=== PATIENT | female | born 1945 | race Caucasian/White ===

== ENCOUNTER 2021-12-07 11:04 | Emergency (ER) | payer MEDICAID, SELFPAY ==
--- NOTE | ~2021-12-07 | MR_ITS ---
MRI OF THE BRAIN WITHOUT IV CONTRAST INDICATION: Dizziness. Ataxia. COMPARISON: Head CT 12/07/2021. TECHNIQUE: Multiplanar multisequence MR imaging of the brain was obtained without IV contrast. FINDINGS: There is no hydrocephalus, extra-axial surface collection, or herniation. 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 The major flow voids at the skull base are preserved. There is no acute infarct on diffusion-weighted imaging. There is no intracranial hemorrhage on the gradient recalled echo acquisition. The midline structures are normal. The cerebellar tonsils are normally positioned. The cerebellum and brainstem are normal. The craniocervical junction is normal. Osseous marrow signal intensity is homogenous. The visualized soft tissues are unremarkable. MR/MR head/brain wo con IMPRESSION: - No acute intracranial findings. 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
--- NOTE | ~2021-12-07 | CT_ITS ---
EXAMINATION: CT HEAD WITHOUT CONTRAST CLINICAL INFORMATION: Severe headache and dizziness. On Coumadin. COMPARISON: None. TECHNIQUE: Contiguous axial imaging was performed from the skull base to vertex without intravenous contrast. This CT examination was performed using dose optimization techniques as appropriate, variously including the following: * Automated exposure control * Adjustment of mA and/or kV according to patient size (this includes techniques or standardized protocols for targeted exams where dose is matched to indication/reason for exam; i.e. extremities or head) Use of iterative reconstruction technique DLP: 644 mGy-cm. FINDINGS: There is no evidence of acute intracranial hemorrhage or territorial infarction. No abnormal mass effect or midline shift is seen. [place] to white matter differentiation is well preserved. No extra-axial fluid collections are identified. No hydrocephalus. Proportional prominence of the ventricles and sulcal spaces is consistent with mild volume loss. Patchy periventricular and deep white matter hypoattenuation is consistent with mild small vessel ischemic changes. The osseous structures and soft tissues are normal. Partial opacification of the right maxillary sinus. The mastoid air cells and visualized portions of the paranasal sinuses are otherwise well aerated. CT/CT head for stroke IMPRESSION: No acute intracranial pathology. This critical result was discussed with Meka Phoenix MD by telephone at 12/07/2021 11:39 AM and it was ascertained that the content and urgency of the report was understood at the time of direct communication.
--- NOTE | ~2021-12-07 | XR_ITS ---
EXAMINATION: XR CHEST CLINICAL INFORMATION: Dizziness COMPARISON: 05/29/2019 TECHNIQUE: Frontal view of the chest was obtained. FINDINGS: The lungs are well expanded. There is no focal consolidation, edema, or effusion. No pneumothorax. The cardiomediastinal silhouette is within normal limits of size with a calcified aorta. No acute osseous abnormality. XR/XR chest 1V IMPRESSION: Clear lungs.
[2021-12-07 11:22] VITALS: BP 166/81; PULSE 77; RESP 18; O2SAT 98; BMI 25.8
--- NOTE | 2021-12-07 11:25 | ECG_ITS ---
Test Reason : DIZZINESS Blood Pressure : / mmHG Vent. Rate : 065 BPM Atrial Rate : 065 BPM P-R Int : 148 ms QRS Dur : 078 ms QT Int : 390 ms P-R-T Axes : 022 057 066 degrees QTc Int : 405 ms Normal sinus rhythm Normal ECG When compared with ECG of 29-MAY-2019 11:46, No significant change was found Referred By: Meka Phoenix Electronically Signed By:JW MASCORRO MD
--- NOTE | 2021-12-07 11:27 | ED_ITS ---
HPI - Neuro Symptoms/Deficit General Chief Complaint: General Medical Stated Complaint: unsteady Time Seen by Provider: 12/07/21 11:19 Source: patient, family and old records reviewed Mode of arrival: ambulatory Limitations: no limitations History of Present Illness HPI Narrative: 76 yo female with hx of DVT on coumadin, legally blind wears very thick corrective lens, arthritis, reports two days ago she noted she felt like she was on a boat and when she walks she leans to the left. She is compliant with medications. No GIB symptoms. Yesterday had severe headache which is very unusual for her. Also noted yesterday that she had trouble with her vision where it seemed dark but this resolved. Today with walking she notes she feels very off balance and is leaning to the left. Family brought patient to the ED for further management. Onset (ago): day(s) (2) Timing confirmed by: family member Location: ataxia History of same: No Severity: moderate Quality: constant Relieving factors: rest Exacerbating factors: other (trying to ambulate) Context: sudden onset On Anticoagulants: Yes Associated symptoms: headaches, nausea/vomiting and other Treatments Prior to Arrival: other (compliant with medications) Related Data Home Medications Medication Instructions Recorded Confirmed cholecalciferol (vitamin D3) 25 25 mcg PO DAILY 12/07/21 12/07/21 mcg (1,000 unit) tablet (Vitamin D3) warfarin 2.5 mg tablet 7.5 mg PO DAILY 12/07/21 12/07/21 Previous Rx's Medication Instructions Recorded meclizine 25 mg tablet 25 mg PO TID PRN #30 tab 12/07/21 Allergies Allergy/AdvReac Type Severity Reaction Status Date / Time No Known Allergies Allergy Unverified 04/21/20 19:45 [No Known Allergies*] Review of Systems Review of Systems: Constitutional : No Fever, No Chills, No Fatigue ENT/Mouth : No sore throat, No Rhinorrhea Eyes: No Eye Pain, No Swelling, No Redness Cardiovascular : No Chest Pain, No SOB, No Dyspnea on Exertion Respiratory : No Cough, No Sputum Gastrointestinal : pos Nausea, No Vomiting, No Diarrhea, No abdominal Pain, no melena, no hematochezia Genitourinary : No Dysuria, No Urinary Frequency, No Hematuria, Musculoskeletal : No joint pain, No Myalgias, No Joint Swelling Skin : No Skin Lesions, No rash Neuro : No Weakness, No Numbness, pos Dizziness, positive Headache, pos diff walking Psych : No Anxiety/Panic, No Depression Heme/Lymph: No Bruising, No Bleeding,No Lymphadenopathy Endocrine : No Polyuria, No Polydipsia All other systems reviewed and are negative [facility] Past Medical History Attestation statement: The following information was validated with the patient. Medical History Arthritis DVT (deep venous thrombosis) Legally blind Surgical History Status post appendectomy Social History Social History (Updated 12/07/21 @ 11:34 by Meka Phoenix DO) Patient Tobacco Use Status: Never used Tobacco Advance Directives: No Advance Directives Information Provided: No Physical Exam Vital Signs: Vital Signs: Last Vital Signs Temp 98.8 F 12/07/21 15:07 Pulse 71 12/07/21 15:07 Resp 16 12/07/21 15:07 BP 123/68 12/07/21 15:07 Pulse Ox 98 12/07/21 15:07 BMI result Body Mass Index 25.8 Appearance: Alert. Oriented X3. No acute distress. Eyes: Pupils equal, round and reactive to light. Very thick prescription glasses ENT: Pharynx normal. TMs normal bilaterally Neck: Normal inspection. Neck supple. CVS: Normal heart rate and rhythm. Pulses normal. Respiratory: No respiratory distress. Breath sounds normal. Abdomen: Soft and non-tender. Skin: Skin warm and dry. Normal skin color. Normal skin turgor. Extremities: No lower extremity edema. No calf ttp Neuro: Oriented X 3. No motor deficit. No sensory deficit. ataxic gait leans to left denies vision changes Course Course Course Narrative: radiology - 1139 stroke protocol no ICH neg ortho VS patient has very steady gait no ataxia noted after fluids normal MRI, hears some whooshing in ear - could be vertigo - will try meclizine add on ESR - neurology no other interventions ESR negative if she improves will DC home with meclizine MDM - Neuro Symptoms/Deficit MDM Narrative Medical decision making narrative: 76 yo female with hx of DVT on coumadin, arthritis, legally blind comes in with 2 days of leaning to the left, severe headache yesterday, lost her vision yesterday. On exam she has diff walking and does lean to the left. STAT head CT ordered for ICH. Suspect she might have had posterior stroke based off her symptoms. She is more than 24 hours out and NIH score low CTA not indicated. At this time will obtian labs, ortho VS, EKG, needs admission for MRI to evaluate for posterior stroke. Lab Data Result diagrams: 12/07/21 11:39 12/07/21 11:39 Labs: Lab Results 12/07/21 12/07/21 12/07/21 Range/Units 11:29 11:39 11:39 WBC 8.8 (4.8-10.8) X10*3/uL RBC 4.43 (4.20-5.50) X10*6/uL Hgb 13.7 (12.0-16.0) g/dl Hct 41.8 (37.0-47.0) % MCV 94.4 (80.0-98.0) fL MCH 30.9 (27.0-33.0) pg MCHC 32.8 (31.0-35.0) g/dl RDW 13.4 (11.0-16.0) % Plt Count 158 L (160-400) X10*3/uL MPV 11.0 (9.4-12.3) fL Immature Gran % (Auto) 0.5 H (0.0-0.4) % Neut % (Auto) 39.7 L (45-73) % Lymph % (Auto) 49.4 H (20-40) % [place] % (Auto) 8.1 (2-11) % Eos % (Auto) 1.7 (0-4) % Baso % (Auto) 0.6 (0-2) % Lymph # (Auto) 4.3 (1.2-4.9) X10*3/uL [place] # (Auto) 0.7 (0.1-1.2) X10*3/uL Eos # (Auto) 0.2 (0.0-0.4) X10*3/uL Baso # (Auto) 0.1 (0.0-0.2) X10*3/uL Abs Immat Gran (auto) 0.04 H (0.00-0.03) X10*3/uL Absolute Neuts (auto) 3.5 (2.0-8.3) x10*3/uL Absolute Nucleated RBC 0.000 (0.0-0.012) X10*3/uL Nucleated RBC % (auto) 0.0 (0.0-0.2) /100WBC ESR (0-20) MM/HR PT 19.3 H (9.9-13.0) SEC Whole Blood PT 19.0 H (11.1-13.5) sec INR 1.7 H (0.9-1.1) Whole Blood INR 1.6 H (0.9-1.1) APTT 40.5 H (24.1-38.0) SEC Sodium (135-145) mmol/L Potassium (3.3-5.1) mmol/L Chloride (96-108) mmol/L Carbon Dioxide (22-29) mmol/L Anion Gap (12-20) BUN (9-16) mg/dL Creatinine (0.5-1.4) mg/dL Estim Creat Clear Calc Estimated GFR Random Glucose (60-115) mg/dL Calcium (8.4-10.2) mg/dL Magnesium (1.6-2.6) mg/dL Total Bilirubin (0.0-1.0) mg/dL Direct Bilirubin (0.0-0.5) mg/dL AST (5-31) U/L ALT (0-31) U/L Alkaline Phosphatase (39-117) U/L Troponin I High Sens (<3.5-17.0) ng/L Total Protein (6.5-8.0) g/dL Albumin (3.5-5.0) g/dL Urine Color Urine Appearance Urine pH (5.0-8.0) Ur Specific [place] (1.005-1.025) Urine Protein (NEG-TRACE) MG/DL Urine Glucose (UA) (NEG) MG/DL Urine Ketones (NEG) MG/DL Urine Blood (NEG) Urine Nitrite (NEG) Ur Leukocyte Esterase (NEG) Urine RBC (0) /HPF Urine WBC (0-4) /HPF Ur Squamous Epith Cells /LPF Urine Bacteria /LPF COVID-19 (TIKI) (Negative) COVID-19 Clin Com 12/07/21 12/07/21 12/07/21 Range/Units 11:39 11:39 11:39 WBC (4.8-10.8) X10*3/uL RBC (4.20-5.50) X10*6/uL Hgb (12.0-16.0) g/dl Hct (37.0-47.0) % MCV (80.0-98.0) fL MCH (27.0-33.0) pg MCHC (31.0-35.0) g/dl RDW (11.0-16.0) % Plt Count (160-400) X10*3/uL MPV (9.4-12.3) fL Immature Gran % (Auto) (0.0-0.4) % Neut % (Auto) (45-73) % Lymph % (Auto) (20-40) % [place] % (Auto) (2-11) % Eos % (Auto) (0-4) % Baso % (Auto) (0-2) % Lymph # (Auto) (1.2-4.9) X10*3/uL [place] # (Auto) (0.1-1.2) X10*3/uL Eos # (Auto) (0.0-0.4) X10*3/uL Baso # (Auto) (0.0-0.2) X10*3/uL Abs Immat Gran (auto) (0.00-0.03) X10*3/uL Absolute Neuts (auto) (2.0-8.3) x10*3/uL Absolute Nucleated RBC (0.0-0.012) X10*3/uL Nucleated RBC % (auto) (0.0-0.2) /100WBC ESR (0-20) MM/HR PT (9.9-13.0) SEC Whole Blood PT (11.1-13.5) sec INR (0.9-1.1) Whole Blood INR (0.9-1.1) APTT (24.1-38.0) SEC Sodium 141 (135-145) mmol/L Potassium 4.6 (3.3-5.1) mmol/L Chloride 110 H (96-108) mmol/L Carbon Dioxide 25 (22-29) mmol/L Anion Gap 11 L (12-20) BUN 18 H (9-16) mg/dL Creatinine 0.77 (0.5-1.4) mg/dL Estim Creat Clear Calc 58.6 Estimated GFR > 60 Random Glucose 103 (60-115) mg/dL Calcium 9.4 (8.4-10.2) mg/dL Magnesium 2.0 (1.6-2.6) mg/dL Total Bilirubin 0.5 (0.0-1.0) mg/dL Direct Bilirubin < 0.2 (0.0-0.5) mg/dL AST 32 H (5-31) U/L ALT 26 (0-31) U/L Alkaline Phosphatase 59 (39-117) U/L Troponin I High Sens < 3.5 (<3.5-17.0) ng/L Total Protein 6.9 (6.5-8.0) g/dL Albumin 3.9 (3.5-5.0) g/dL Urine Color Urine Appearance Urine pH (5.0-8.0) Ur Specific [place] (1.005-1.025) Urine Protein (NEG-TRACE) MG/DL Urine Glucose (UA) (NEG) MG/DL Urine Ketones (NEG) MG/DL Urine Blood (NEG) Urine Nitrite (NEG) Ur Leukocyte Esterase (NEG) Urine RBC (0) /HPF Urine WBC (0-4) /HPF Ur Squamous Epith Cells /LPF Urine Bacteria /LPF COVID-19 (TIKI) Negative (Negative) COVID-19 Clin Com See Note 12/07/21 12/07/21 Range/Units 11:39 11:52 WBC (4.8-10.8) X10*3/uL RBC (4.20-5.50) X10*6/uL Hgb (12.0-16.0) g/dl Hct (37.0-47.0) % MCV (80.0-98.0) fL MCH (27.0-33.0) pg MCHC (31.0-35.0) g/dl RDW (11.0-16.0) % Plt Count (160-400) X10*3/uL MPV (9.4-12.3) fL Immature Gran % (Auto) (0.0-0.4) % Neut % (Auto) (45-73) % Lymph % (Auto) (20-40) % [place] % (Auto) (2-11) % Eos % (Auto) (0-4) % Baso % (Auto) (0-2) % Lymph # (Auto) (1.2-4.9) X10*3/uL [place] # (Auto) (0.1-1.2) X10*3/uL Eos # (Auto) (0.0-0.4) X10*3/uL Baso # (Auto) (0.0-0.2) X10*3/uL Abs Immat Gran (auto) (0.00-0.03) X10*3/uL Absolute Neuts (auto) (2.0-8.3) x10*3/uL Absolute Nucleated RBC (0.0-0.012) X10*3/uL Nucleated RBC % (auto) (0.0-0.2) /100WBC ESR 7 (0-20) MM/HR PT (9.9-13.0) SEC Whole Blood PT (11.1-13.5) sec INR (0.9-1.1) Whole Blood INR (0.9-1.1) APTT (24.1-38.0) SEC Sodium (135-145) mmol/L Potassium (3.3-5.1) mmol/L Chloride (96-108) mmol/L Carbon Dioxide (22-29) mmol/L Anion Gap (12-20) BUN (9-16) mg/dL Creatinine (0.5-1.4) mg/dL Estim Creat Clear Calc Estimated GFR Random Glucose (60-115) mg/dL Calcium (8.4-10.2) mg/dL Magnesium (1.6-2.6) mg/dL Total Bilirubin (0.0-1.0) mg/dL Direct Bilirubin (0.0-0.5) mg/dL AST (5-31) U/L ALT (0-31) U/L Alkaline Phosphatase (39-117) U/L Troponin I High Sens (<3.5-17.0) ng/L Total Protein (6.5-8.0) g/dL Albumin (3.5-5.0) g/dL Urine Color COLORLESS Urine Appearance CLEAR Urine pH 6.5 (5.0-8.0) Ur Specific [place] <= 1.005 (1.005-1.025) Urine Protein NEG (NEG-TRACE) MG/DL Urine Glucose (UA) NEG (NEG) MG/DL Urine Ketones NEG (NEG) MG/DL Urine Blood TRACE (NEG) Urine Nitrite NEG (NEG) Ur Leukocyte Esterase NEG (NEG) Urine RBC 0-2 (0) /HPF Urine WBC 0 (0-4) /HPF Ur Squamous Epith Cells TRACE /LPF Urine Bacteria NONE /LPF COVID-19 (TIKI) (Negative) COVID-19 Clin Com ECG Data Attestation: I personally reviewed and interpreted this ECG as follows: ECG interpretation date: 12/07/21 ECG interpretation time: 11:54 Interpretation: Rate: 65 Rhythm: NSR [place]: normal Normal P waves. Normal FIDEL. Normal QRS complex. ST T wave : normal no JOE qTC: normal prior studies: no acute ischemia The study has been interpreted contemporaneously by me. . NIH Stroke Scale Internal: Initial- Upon Arrival Level of Consciousness: Alert Level of Consciousness Questions: Answers both questions correctly Level of Consciousness Commands: Performs both tasks correctly Best Gaze: Normal Visual: No visual loss Facial Palsy: Normal Motor Arm (Right): No drift Motor Arm (Left): No drift Motor Leg (Right): No drift Motor Leg (Left): No drift Limb Ataxia: Present in one limb Sensory: Normal Best Language: No aphasia Dysarthia: Normal Extinction and Inattention: No abnormality Score: 1 Discharge Plan Discharge Clinical Impression: Dizziness Patient Disposition: Home, Self-Care Instructions: Vertigo (ED), Dizziness (ED) Additional Instructions: return to ED for any worsening symptoms or concerns NO STROKE ON MRI INR 1.7 Prescriptions: New meclizine 25 mg tablet 25 mg PO TID PRN (Reason: dizziness) Qty: 30 0RF No Action warfarin 2.5 mg tablet 7.5 mg PO DAILY 0RF cholecalciferol (vitamin D3) [Vitamin D3] 25 mcg (1,000 unit) Tablet 25 mcg PO DAILY 0RF Referrals: Physician,Unknown J [Primary Care Provider] - 12/11/21 (PRIMARY CARE DOCTOR ON SATURDAY)
[2021-12-07 11:36] LABS: ~PT, ~INR - Anti Coag Clinic 1.6 (0.9-1.1)
[2021-12-07 11:44] LABS: MANUAL DIFF FLAG NO
[2021-12-07 11:49] LABS: Basophils Absolute Auto 0.1 X10*3/uL (0.0-0.2); Basophils Percent Auto 0.6 % (0-2); Eosinophils Absolute Auto 0.2 X10*3/uL (0.0-0.4); Eosinophils Percent Auto 1.7 % (0-4); Hematocrit 41.8 % (37.0-47.0); Hemoglobin 13.7 g/dl (12.0-16.0); Imm Gran Abs Auto 0.04 X10*3/uL (0.00-0.03); Imm Gran Pct Auto 0.5 % (0.0-0.4); Lymphocytes Absolute Auto 4.3 X10*3/uL (1.2-4.9); Lymphocytes Percent Auto 49.4 % (20-40); Mean Corpuscular HGB Conc 32.8 g/dl (31.0-35.0); Mean Corpuscular Hemoglobin 30.9 pg (27.0-33.0); Mean Corpuscular Volume 94.4 fL (80.0-98.0); Monocytes Absolute Auto 0.7 X10*3/uL (0.1-1.2); Monocytes Percent Auto 8.1 % (2-11); Neutrophils Absolute Auto 3.5 x10*3/uL (2.0-8.3); Neutrophils Percent Auto 39.7 % (45-73); Platelet Count 158 X10*3/uL (160-400); Red Blood Count 4.43 X10*6/uL (4.20-5.50); Red Cell Distribution Width 13.4 % (11.0-16.0); White Blood Count 8.8 X10*3/uL (4.8-10.8)
[2021-12-07 11:55] VITALS: BP 131/74; PULSE 67
[2021-12-07 11:56] VITALS: BP 133/85; PULSE 81
[2021-12-07 11:59] VITALS: BP 143/81; PULSE 76
[2021-12-07 12:00] LABS: Alanine Aminotransferase 26 U/L (0-31); Albumin Level 3.9 g/dL (3.5-5.0); Alkaline Phosphatase 59 U/L (39-117); Anion Gap 11 (12-20); Aspartate Amino Transferase 32 U/L (5-31); Bilirubin Direct < 0.2 mg/dL (0.0-0.5); Bilirubin Total 0.5 mg/dL (0.0-1.0); Blood Urea Nitrogen 18 mg/dL (9-16); Calcium 9.4 mg/dL (8.4-10.2); Carbon Dioxide 25 mmol/L (22-29); Chloride 110 mmol/L (96-108); Creatinine Clr Calc Pharmacy 58.6; Estimated Glomerular Filt Rate > 60; Glucose Random 103 mg/dL (60-115); Potassium 4.6 mmol/L (3.3-5.1); Sodium 141 mmol/L (135-145); Total Protein 6.9 g/dL (6.5-8.0)
[2021-12-07 12:02] LABS: Appearance Urine CLEAR; Glucose Urine UA NEG (NEG); Leukocyte Esterase Urine NEG (NEG); Nitrite Urine NEG (NEG); PH 6.5 (5.0-8.0); Specific Gravity - Urine <= 1.005 (1.005-1.025); UACC Culture Trigger NO; Urine Blood TRACE (NEG); Urine Ketones NEG (NEG); Urine Protein NEG (NEG-TRACE)
[2021-12-07 12:04] LABS: Troponin-I High Sensitivity < 3.5 ng/L (<3.5-17.0)
[2021-12-07 12:04] LABS: Color Urine COLORLESS
[2021-12-07 12:05] LABS: INTERNATIONAL NORM RATIO 1.7 (0.9-1.1); Prothrombin Time 19.3 SEC (9.9-13.0)
[2021-12-07 12:08] LABS: Partial Thromboplastin Time 40.5 SEC (24.1-38.0)
[2021-12-07 12:23] LABS: COVID-19 Test Negative (Negative); IDNOW Serial# 16C4AD1C
[2021-12-07 12:29] LABS: RBC Urine 0-2 /HPF (0); Squamous Epithelial Cell Urine TRACE /LPF; WBC Urine 0 /HPF (0-4)
--- NOTE | 2021-12-07 13:36 | PHA.MEDREC ---
Addendum entered by Zayra Smith [facility] 12/07/21 14:12: KINA collins called back and states patient is only on warfarin 7.5 mg daily. Original Note: Pharmacy Consult ? Medication Reconciliation Pharmacy has completed the medication reconciliation. Spoke with patient and daughter. [facility] Beatrice[facility] from [place] and her phone number is [phone]. I am waiting for a call back to double check medication list but per the patient she is only on 2 medications.
[2021-12-07] MEDS: 0.9 % Sodium Chloride 500 ML IV (13:38)
[2021-12-07 15:07] VITALS: BP 123/68; PULSE 71; RESP 16; TEMP 37.1; O2SAT 98
[2021-12-07] MEDS: Meclizine HCl 25 MG TABLET PO (15:26)
[2021-12-07 15:29] LABS: Erythrocyte Sedimentation Rate 7 MM/HR (0-20)
== END 2021-12-07 17:14 | disposition home or self-care (01) ==
PROVIDERS: Emergency Provider Emergency Medicine
DX: R42 Dizziness and giddiness (principal); R51.9 Headache, unspecified; R11.2 Nausea with vomiting, unspecified; R29.701 NIHSS score 1; Z20.822 Contact with and (suspected) exposure to COVID-19; Z79.899 Other long term (current) drug therapy
CPT/HCPCS: 70450; 70551; 71045; 80048; 80076; 81001; 81003; 83735; 84484; 85025; 85610; 85652; 85730; 87635; 93005; 96360; 99284; 99285

== ENCOUNTER 2021-12-09 15:38 | Emergency (ER) | payer MEDICAID, SELFPAY ==
[2021-12-09 15:48] VITALS: BP 156/124; BP 162/104; PULSE 102; PULSE 105; RESP 16; TEMP 37; O2SAT 95; O2SAT 97; BMI 24.7
[2021-12-09 16:02] LABS: Glucose, Whole Blood 115 mg/dL (60-115)
--- NOTE | 2021-12-09 16:30 | ED.DIZZY ---
HPI - Dizziness General Chief Complaint: Dizziness Stated Complaint: DIZZY,ELMORE,FEVER, SEEN FOR SAME RECENTLY PER EMS Time Seen by Provider: 12/09/21 16:17 Source: patient and family Mode of arrival: ambulatory Limitations: no limitations History of Present Illness HPI Narrative: Patient is 76 years old was just seen here on 11/07 for dizziness and headache full workup including MRI was negative patient speaks a new cranial and lives alone according to her daughter for last few months patient had difficulty in walking falling on 1 side sometimes no recent fall and for last 3 days patient had more difficulty in walking. Denies any back pain or neck pain. Also for last 2 days patient complaining of running nose and sore throat and body aches. Previous COVID was negative Related Data Home Medications Medication Instructions Recorded Confirmed cholecalciferol (vitamin D3) 25 25 mcg PO DAILY 12/07/21 12/07/21 mcg (1,000 unit) tablet (Vitamin D3) warfarin 2.5 mg tablet 7.5 mg PO DAILY 12/07/21 12/07/21 Previous Rx's Medication Instructions Recorded meclizine 25 mg tablet 25 mg PO TID PRN #30 tab 12/07/21 Allergies Allergy/AdvReac Type Severity Reaction Status Date / Time No Known Allergies Allergy Unverified 04/21/20 19:45 [No Known Allergies*] Review of Systems Review of Systems: Yes all other systems are reviewed and are negative [facility] Past Medical History Medical History Arthritis DVT (deep venous thrombosis) Legally blind Surgical History Status post appendectomy Social History Social History Patient Tobacco Use Status: Never used Tobacco Advance Directives: No Advance Directives Information Provided: No Physical Exam Vital Signs: Vital Signs: Last Vital Signs Temp 98.6 F 12/09/21 15:48 Pulse 102 H 12/09/21 15:48 Resp 16 12/09/21 15:48 BP 162/104 H 12/09/21 15:48 Pulse Ox 95 12/09/21 15:48 BMI result Body Mass Index 24.7 Appearance: Alert. Oriented X3. No acute distress. Eyes: PERRLA, No Nystagmus ENT: Pharynx normal. Oral Mucosa moist Neck: Normal inspection. Neck supple. CVS: Normal heart rate and rhythm. Pulses normal. Respiratory: No respiratory distress. Equal air entry bilateral, no wheezing/rales/rhonchi Abdomen: Soft and nontender. Bowel sounds are present, no mass palpable, Skin: Skin warm and dry. Normal skin color. Normal skin turgor. Extremities: No lower extremity edema. No calf tenderness Neuro: Oriented X 3. No motor deficit. No sensory deficit.No cerebellar signs , cranial nerves II-XII intact gait slightly unsteady but no fall no tremors Romberg sign negative MDM - Dizziness MDM Narrative Medical decision making narrative: Patient's labs are stable at this time is no signs of dizziness patient able to ambulate slightly imbalance need physical therapy for gait improvement patient refused to have a walker or cane at this time family will follow with PCP Lab Data Attestation: I reviewed the patient's lab results. Result diagrams: 12/09/21 17:33 12/09/21 17:33 Labs: Lab Results 12/09/21 12/09/21 12/09/21 Range/Units 15:50 17:33 17:33 WBC 7.5 (4.8-10.8) X10*3/uL RBC 4.44 (4.20-5.50) X10*6/uL Hgb 13.6 (12.0-16.0) g/dl Hct 41.6 (37.0-47.0) % MCV 93.7 (80.0-98.0) fL MCH 30.6 (27.0-33.0) pg MCHC 32.7 (31.0-35.0) g/dl RDW 13.3 (11.0-16.0) % Plt Count 121 L (160-400) X10*3/uL MPV 10.9 (9.4-12.3) fL Immature Gran % (Auto) 0.3 (0.0-0.4) % Neut % (Auto) 46.1 (45-73) % Lymph % (Auto) 40.6 H (20-40) % [place] % (Auto) 10.6 (2-11) % Eos % (Auto) 1.7 (0-4) % Baso % (Auto) 0.7 (0-2) % Lymph # (Auto) 3.0 (1.2-4.9) X10*3/uL [place] # (Auto) 0.8 (0.1-1.2) X10*3/uL Eos # (Auto) 0.1 (0.0-0.4) X10*3/uL Baso # (Auto) 0.1 (0.0-0.2) X10*3/uL Abs Immat Gran (auto) 0.02 (0.00-0.03) X10*3/uL Absolute Neuts (auto) 3.5 (2.0-8.3) x10*3/uL Absolute Nucleated RBC 0.000 (0.0-0.012) X10*3/uL Nucleated RBC % (auto) 0.0 (0.0-0.2) /100WBC Sodium 141 (135-145) mmol/L Potassium 4.7 (3.3-5.1) mmol/L Chloride 107 (96-108) mmol/L Carbon Dioxide 25 (22-29) mmol/L Anion Gap 14 (12-20) BUN 10 (9-16) mg/dL Creatinine 0.79 (0.5-1.4) mg/dL Estim Creat Clear Calc 56.0 Estimated GFR > 60 POC Glucose 115 (60-115) mg/dL Random Glucose 110 (60-115) mg/dL Calcium 9.4 (8.4-10.2) mg/dL Total Bilirubin 0.3 (0.0-1.0) mg/dL AST 43 H (5-31) U/L ALT 40 H (0-31) U/L Alkaline Phosphatase 62 (39-117) U/L C-Reactive Protein 0.81 H (< or = 0.50) mg/dL Total Protein 6.5 (6.5-8.0) g/dL Albumin 3.8 (3.5-5.0) g/dL Urine Color Urine Appearance Urine pH (5.0-8.0) Ur Specific [place] (1.005-1.025) Urine Protein (NEG-TRACE) MG/DL Urine Glucose (UA) (NEG) MG/DL Urine Ketones (NEG) MG/DL Urine Blood (NEG) Urine Nitrite (NEG) Ur Leukocyte Esterase (NEG) Urine RBC (0) /HPF Urine WBC (0-4) /HPF Ur Squamous Epith Cells /LPF Urine Bacteria /LPF Influenza Type A (PCR) (Negative) Influenza Type B (PCR) (Negative) RSV RNA Qual (PCR) (Negative) SARS-CoV-2 RNA (RT-PCR) (Negative) 12/09/21 12/09/21 Range/Units 17:33 17:36 WBC (4.8-10.8) X10*3/uL RBC (4.20-5.50) X10*6/uL Hgb (12.0-16.0) g/dl Hct (37.0-47.0) % MCV (80.0-98.0) fL MCH (27.0-33.0) pg MCHC (31.0-35.0) g/dl RDW (11.0-16.0) % Plt Count (160-400) X10*3/uL MPV (9.4-12.3) fL Immature Gran % (Auto) (0.0-0.4) % Neut % (Auto) (45-73) % Lymph % (Auto) (20-40) % [place] % (Auto) (2-11) % Eos % (Auto) (0-4) % Baso % (Auto) (0-2) % Lymph # (Auto) (1.2-4.9) X10*3/uL [place] # (Auto) (0.1-1.2) X10*3/uL Eos # (Auto) (0.0-0.4) X10*3/uL Baso # (Auto) (0.0-0.2) X10*3/uL Abs Immat Gran (auto) (0.00-0.03) X10*3/uL Absolute Neuts (auto) (2.0-8.3) x10*3/uL Absolute Nucleated RBC (0.0-0.012) X10*3/uL Nucleated RBC % (auto) (0.0-0.2) /100WBC Sodium (135-145) mmol/L Potassium (3.3-5.1) mmol/L Chloride (96-108) mmol/L Carbon Dioxide (22-29) mmol/L Anion Gap (12-20) BUN (9-16) mg/dL Creatinine (0.5-1.4) mg/dL Estim Creat Clear Calc Estimated GFR POC Glucose (60-115) mg/dL Random Glucose (60-115) mg/dL Calcium (8.4-10.2) mg/dL Total Bilirubin (0.0-1.0) mg/dL AST (5-31) U/L ALT (0-31) U/L Alkaline Phosphatase (39-117) U/L C-Reactive Protein (< or = 0.50) mg/dL Total Protein (6.5-8.0) g/dL Albumin (3.5-5.0) g/dL Urine Color STRAW Urine Appearance CLEAR Urine pH 6.0 (5.0-8.0) Ur Specific [place] <= 1.005 (1.005-1.025) Urine Protein NEG (NEG-TRACE) MG/DL Urine Glucose (UA) NEG (NEG) MG/DL Urine Ketones NEG (NEG) MG/DL Urine Blood TRACE (NEG) Urine Nitrite NEG (NEG) Ur Leukocyte Esterase NEG (NEG) Urine RBC 0-2 (0) /HPF Urine WBC 0 (0-4) /HPF Ur Squamous Epith Cells TRACE /LPF Urine Bacteria NONE /LPF Influenza Type A (PCR) NEGATIVE (Negative) Influenza Type B (PCR) NEGATIVE (Negative) RSV RNA Qual (PCR) NEGATIVE (Negative) SARS-CoV-2 RNA (RT-PCR) NEGATIVE (Negative) Discharge Plan Discharge Clinical Impression: Dizziness, Unsteady gait Patient Disposition: Home, Self-Care Instructions: Fall Prevention for Older Adults (ED), Dizziness (ED) Additional Instructions: Care and cautions advised Follow-up with physical therapist/PCP for further workup including physical therapy and gait/balance therapy Prescriptions: No Action warfarin 2.5 mg tablet 7.5 mg PO DAILY 0RF cholecalciferol (vitamin D3) [Vitamin D3] 25 mcg (1,000 unit) Tablet 25 mcg PO DAILY 0RF meclizine 25 mg tablet 25 mg PO TID PRN (Reason: dizziness) Qty: 30 0RF Interventions: ED Discharge Assessment Last Done: 12/09/21 19:05 Discharge Date/Time: 12/09/21 19:05
[2021-12-09 17:40] LABS: MANUAL DIFF FLAG NO
[2021-12-09 17:47] LABS: Appearance Urine CLEAR; Color Urine STRAW; Glucose Urine UA NEG (NEG); Leukocyte Esterase Urine NEG (NEG); Nitrite Urine NEG (NEG); Specific Gravity - Urine <= 1.005 (1.005-1.025); UACC Culture Trigger NO; Urine Blood TRACE (NEG); Urine Ketones NEG (NEG); Urine Protein NEG (NEG-TRACE)
[2021-12-09 17:48] LABS: Basophils Absolute Auto 0.1 X10*3/uL (0.0-0.2); Basophils Percent Auto 0.7 % (0-2); Eosinophils Absolute Auto 0.1 X10*3/uL (0.0-0.4); Eosinophils Percent Auto 1.7 % (0-4); Hematocrit 41.6 % (37.0-47.0); Hemoglobin 13.6 g/dl (12.0-16.0); Imm Gran Abs Auto 0.02 X10*3/uL (0.00-0.03); Imm Gran Pct Auto 0.3 % (0.0-0.4); Lymphocytes Percent Auto 40.6 % (20-40); Mean Corpuscular HGB Conc 32.7 g/dl (31.0-35.0); Mean Corpuscular Hemoglobin 30.6 pg (27.0-33.0); Mean Corpuscular Volume 93.7 fL (80.0-98.0); Mean Platelet Volume 10.9 fL (9.4-12.3); Monocytes Absolute Auto 0.8 X10*3/uL (0.1-1.2); Monocytes Percent Auto 10.6 % (2-11); Neutrophils Absolute Auto 3.5 x10*3/uL (2.0-8.3); Neutrophils Percent Auto 46.1 % (45-73); Platelet Count 121 X10*3/uL (160-400); Red Blood Count 4.44 X10*6/uL (4.20-5.50); Red Cell Distribution Width 13.3 % (11.0-16.0); White Blood Count 7.5 X10*3/uL (4.8-10.8)
[2021-12-09 17:56] LABS: RBC Urine 0-2 /HPF (0); Squamous Epithelial Cell Urine TRACE /LPF; WBC Urine 0 /HPF (0-4)
[2021-12-09 18:08] LABS: Alanine Aminotransferase 40 U/L (0-31); Albumin Level 3.8 g/dL (3.5-5.0); Alkaline Phosphatase 62 U/L (39-117); Anion Gap 14 (12-20); Aspartate Amino Transferase 43 U/L (5-31); Bilirubin Total 0.3 mg/dL (0.0-1.0); Blood Urea Nitrogen 10 mg/dL (9-16); C Reactive Protein 0.81 mg/dL (< or = 0.50); Calcium 9.4 mg/dL (8.4-10.2); Carbon Dioxide 25 mmol/L (22-29); Chloride 107 mmol/L (96-108); Estimated Glomerular Filt Rate > 60; Glucose Random 110 mg/dL (60-115); Potassium 4.7 mmol/L (3.3-5.1); Sodium 141 mmol/L (135-145); Total Protein 6.5 g/dL (6.5-8.0)
[2021-12-09 18:32] LABS: Influenza A PCR NEGATIVE (Negative); Influenza B PCR NEGATIVE (Negative); Resp Syncy Virus RNA Qual PCR NEGATIVE (Negative); SARS COV2 PCR INHOUSE NEGATIVE (Negative)
== END 2021-12-09 19:05 | disposition home or self-care (01) ==
PROVIDERS: Emergency Provider Internal Medicine
DX: R42 Dizziness and giddiness (principal); R26.81 Unsteadiness on feet; H54.8 Legal blindness, as defined in USA; Z86.718 Personal history of other venous thrombosis and embolism; Z20.822 Contact with and (suspected) exposure to COVID-19
CPT/HCPCS: 0241U; 80053; 81001; 82947; 85025; 86140; 99283; 99284

== ENCOUNTER 2023-07-30 16:07 | Emergency (ER) | payer OTHER, SELFPAY ==
[2023-07-30 16:36] VITALS: BP 180/97; PULSE 97; RESP 18; TEMP 36.8; O2SAT 97
--- NOTE | 2023-07-30 16:36 | ED.GENADULT ---
HPI - General Adult General Chief complaint: Extremity Injury, Lower Stated complaint: rash and swelling, left leg Related Data Home Medications Medication Instructions Recorded Confirmed cholecalciferol (vitamin D3) 25 25 mcg PO DAILY 12/07/21 12/07/21 mcg (1,000 unit) tablet (Vitamin D3) apixaban 5 mg tablet (Eliquis) 5 mg PO BID 02/01/22 02/01/22 Previous Rx's Medication Instructions Recorded meclizine 25 mg tablet 25 mg PO TID PRN dizziness #30 tabs 12/07/21 Allergies Allergy/AdvReac Type Severity Reaction Status Date / Time No Known Allergies Allergy Unverified 02/01/22 09:47 [No Known Allergies*] [facility] Past Medical History Medical History Arthritis DVT (deep venous thrombosis) Legally blind Surgical History Status post appendectomy Social History Social History Patient Tobacco Use Status: Never used Tobacco Advance Directives: No Advance Directives Information Provided: No Physical Exam ED Vital Signs: Vital Signs - 24 hr 07/30/23 16:36 Temperature 98.2 F Pulse Rate 97 Respiratory Rate 18 Blood Pressure 180/97 H Pulse Oximetry 97 Oxygen Delivery Method Room Air BMI result Body Mass Index 30.0 Course Course Course Narrative: RME:?77 yo female, hx of DVT on eliquis, here for eval of itchy red patches to LLE. Reports history of DVT in LLE. Denies chest pain, SOB, n/v. Denies recent travel or long ar rides. Exam: few red, patchy, scaled papules noted to left ankle. chronic venous skin changes. 2+ dp/pt pulses. no calf tenderness. no peripheral edema. ambulating w/ steady gait. lungs cta. Full HPI, ROS and PE to be performed by the primary ED provider. Reevaluation(s) Reevaluation #1: I personally evaluated patient in triage. Patient left the ED without completing treatment. Discharge Plan Discharge Clinical Impression: Rash Patient Disposition: Left W/O Completing Treatment Prescriptions: No Action cholecalciferol (vitamin D3) [Vitamin D3] 25 mcg (1,000 unit) Tablet 25 mcg PO DAILY meclizine 25 mg tablet 25 mg PO TID PRN (Reason: dizziness) Qty: 30 0RF Eliquis 5 mg tablet 5 mg PO BID Discharge Date/Time: 07/30/23 22:16
== END 2023-07-30 22:16 | disposition left against medical advice (07) ==
PROVIDERS: Emergency Provider Emergency Medicine; PCP Physician Assistant
DX: R60.0 Localized edema (principal)
CPT/HCPCS: 99281

== ENCOUNTER 2024-10-30 16:18 | Emergency (ER) | payer OTHER, SELFPAY ==
--- NOTE | ~2024-10-30 | CT_ITS ---
CLINICAL HISTORY: left pleuritic pain CT angiography chest with contrast. 3D Postprocessing. Comparison: None Findings: Heart size normal. No pericardial effusion. Normal caliber thoracic aorta. No pulmonary artery enlargement or filling defect. Patchy airspace opacities with mosaic attenuation in both lungs. No consolidation. No pleural effusion or pneumothorax. No acute finding in the partially visualized upper abdomen. No acute fracture or suspicious bone lesion. IMPRESSION: 1. No pulmonary embolism. Mosaic attenuation in the lungs could reflect atypical infectious process such as viral pneumonitis versus pulmonary edema. This document has been electronically signed by: Josiah Adhikari MD on 10/30/2024 22:36:25
--- NOTE | ~2024-10-30 | XR_ITS ---
CLINICAL HISTORY: pain 4 view, chest and left ribs Comparison: CR/SR - XR CHEST 1V - 12/07/21 11:47 EDT Findings: No rib fracture. No pneumothorax or pleural effusion. The lungs are clear. Heart size normal. IMPRESSION: No acute rib fractures. This document has been electronically signed by: Josiah Adhikari MD on 10/30/2024 19:04:31
[2024-10-30 16:40] VITALS: BP 154/73; PULSE 89; RESP 18; TEMP 36.5; O2SAT 95; BMI 24.8
--- NOTE | 2024-10-30 16:45 | ECG_ITS ---
Test Reason : chest pain Blood Pressure : */* mmHG Vent. Rate : 82 BPM Atrial Rate : 82 BPM P-R Int : 160 ms QRS Dur : 70 ms QT Int : 342 ms P-R-T Axes : 66 53 69 degrees QTcB Int : 399 ms Normal sinus rhythm Normal ECG When compared with ECG of 07-Dec-2021 11:33, No significant change was found Referred By: Generic ED Physician Electronically Signed By: JW MASCORRO MD
[2024-10-30 17:00] LABS: MANUAL DIFF FLAG NO
[2024-10-30 17:01] LABS: Basophils Percent Auto 0.6 % (0-2); Eosinophils Absolute Auto 0.2 X10*3/uL (0.0-0.4); Eosinophils Percent Auto 3.1 % (0-4); Hematocrit 38.6 % (37.0-47.0); Imm Gran Abs Auto 0.02 X10*3/uL (0.00-0.03); Imm Gran Pct Auto 0.3 % (0.0-0.4); Lymphocytes Absolute Auto 2.9 X10*3/uL (1.2-4.9); Lymphocytes Percent Auto 45.9 % (20-40); Mean Corpuscular HGB Conc 33.7 g/dl (31.0-35.0); Mean Corpuscular Hemoglobin 30.8 pg (27.0-33.0); Mean Corpuscular Volume 91.5 fL (80.0-98.0); Mean Platelet Volume 10.2 fL (9.4-12.3); Monocytes Absolute Auto 0.6 X10*3/uL (0.1-1.2); Monocytes Percent Auto 8.7 % (2-11); Neutrophils Absolute Auto 2.7 x10*3/uL (2.0-8.3); Neutrophils Percent Auto 41.4 % (45-73); Platelet Count 158 X10*3/uL (160-400); Red Blood Count 4.22 X10*6/uL (4.20-5.50); Red Cell Distribution Width 13.5 % (11.0-16.0); White Blood Count 6.4 X10*3/uL (4.8-10.8)
[2024-10-30 17:08] LABS: INTERNATIONAL NORM RATIO 1.1 (0.9-1.1); Prothrombin Time 13.2 SEC (10.9-12.4)
[2024-10-30 17:18] LABS: Alanine Aminotransferase 28 U/L (0-31); Albumin Level 3.9 g/dL (3.5-5.0); Anion Gap 9 (12-20); Aspartate Amino Transferase 35 U/L (5-31); Bilirubin Total 0.6 mg/dL (0.0-1.0); Blood Urea Nitrogen 18 mg/dL (9-16); Calcium 9.6 mg/dL (8.4-10.2); Carbon Dioxide 26 mmol/L (22-29); Chloride 111 mmol/L (96-108); Creatinine Clr Calc Pharmacy 54.8; Estimated Glomerular Filt Rate > 60; Glucose Random 106 mg/dL (60-115); Magnesium 1.8 mg/dL (1.6-2.6); Potassium 4.4 mmol/L (3.3-5.1); Sodium 142 mmol/L (135-145); Total Protein 6.9 g/dL (6.5-8.0)
[2024-10-30 17:25] LABS: Alkaline Phosphatase 66 U/L (39-117)
[2024-10-30 20:06] VITALS: BP 126/81; PULSE 81; RESP 16; TEMP 36.7; O2SAT 92
[2024-10-30] MEDS: iohexoL 350 MG/ML 100 ML INFUS..BTL 65 ML IV (22:11)
--- NOTE | 2024-10-30 23:36 | ED_ITS ---
HPI - Chest Pain General Chief Complaint: Chest Pain Stated Complaint: Left rib pain Time Seen by Provider: 10/30/24 19:50 Source: family Limitations: language barrier History of Present Illness ED Provider: Stephy Meza PA-C HPI narrative: 79-year-old female who is legally blind, with a history of DVT on Eliquis, osteoarthritis, presents with left lateral rib pain x2 weeks. Pain worse with movement, palpation of chest wall and with deep inspiration. Patient is active, the exercises on a regular basis, however she did not perform any new activities, no heavy lifting, no trauma. Denies recent cough or cold symptoms. Denies diaphoresis, nausea, vomiting. No fevers. Related Data Home Medications ?Medication ?Instructions ?Recorded ?Confirmed cholecalciferol (vitamin D3) 25 25 mcg PO DAILY 12/07/21 12/07/21 mcg (1,000 unit) tablet (Vitamin D3) apixaban 5 mg tablet (Eliquis) 5 mg PO BID 02/01/22 02/01/22 Previous Rx's ?Medication ?Instructions ?Recorded meclizine 25 mg tablet 25 mg PO TID PRN dizziness #30 tabs 12/07/21 Allergies Allergy/AdvReac Type Severity Reaction Status Date / Time No Known Allergies Allergy Verified 10/30/24 16:43 [No Known Allergies*] Review of Systems 2 Review of Systems: Yes all other systems are reviewed and are negative Constitutional: Constitutional: Denies fatigue and Denies fever(s) Cardiovascular: Cardiovascular: Reports chest pain and Denies dyspnea Respiratory: Respiratory: Denies cough, Reports pain on inspiration and Denies dyspnea Gastrointestinal: Gastrointestinal: Denies abdominal pain, Denies nausea and Denies vomiting Endocrine: Endocrine: Denies fatigue [facility] Past Medical History Attestation statement: The following information was validated with the patient. Medical History Arthritis DVT (deep venous thrombosis) Legally blind Surgical History Status post appendectomy Social History Social History Patient Tobacco Use Status: Never used Tobacco Smoked in Last 30 Days: No Use of substances other than those prescribed or required for medical reasons: No Advance Directives: No Advance Directives Information Provided: No Physical Exam 2 Vital Signs: Vital Signs: Last Vital Signs Temp 98.0 F 10/30/24 23:43 Pulse 81 10/30/24 23:43 Resp 16 10/30/24 23:43 BP 126/81 10/30/24 23:43 Pulse Ox 92 10/30/24 23:43 O2 Del Method Room Air 10/30/24 23:43 BMI result Body Mass Index 24.8 Const: Other: Alert Orientation/consciousness: patient oriented x3 Chest: Other: Pain over left lateral chest wall is generalized nonfocal, not reproducible right now with palpation Resp: Effort & Inspection: normal respiratory effort Cardio: Other: Normal peripheral perfusion Skin: Other: Warm dry no rash Neuro: Other: Cranial nerves intact with the exception of cranial nerve II General: patient oriented x3, gait normal, no focal motor deficits and CN's II-XI intact bilaterally Psych: Other: Very inpatient Medications Administered Discontinued Medications Generic Name Dose Route Start Last Admin Trade Name Freq PRN Reason Stop Dose Admin Iohexol 65 ml 10/30/24 22:10 10/30/24 22:11 Iohexol 350 Mg/Ml 100 Ml Infus..Btl IV 10/30/24 22:11 65 ml ONCE ONE Administration Medical Decision Making Medical Decision Making MDM Narrative: 79-year-old female who is legally blind, with a history of DVT on Eliquis, osteoarthritis, presents with left lateral rib pain x2 weeks. Pain worse with movement, palpation of chest wall and with deep inspiration. Patient is active, the exercises on a regular basis, however she did not perform any new activities, no heavy lifting, no trauma. Denies recent cough or cold symptoms. Denies diaphoresis, nausea, vomiting. No fevers. Problem: DVT on Eliquis, arthritis History: Per patient via her daughter I have considered the following differential diagnoses: Chest wall strain, rib fracture, costochondritis, pneumonia, PE, acs Plan: Thought about ACS, however the patient's pain is atypical, it has been present for 2 weeks, it was reproducible. EKG was obtained. She has not had preceding viral syndrome to suggest costochondritis. Spontaneous rib fracture would be odd, a chest x-ray was obtained. She could simply have some degree of chest wall pain/strain, she does perform physical activity on a regular basis. However, given her history of DVT, I am inclined to obtain a CT angiogram given there are elements of pleuritic chest discomfort at times. I have independently reviewed the following tests: Labs: No leukocytosis, not anemic, no electrolyte abnormality noted EKG: Normal sinus rhythm, rate 82, no ischemic changes no ectopy QTC 399 Chest x-ray:Findings: No rib fracture. No pneumothorax or pleural effusion. The lungs are clear. Heart size normal. IMPRESSION: No acute rib fractures. CTA chest:Findings: Heart size normal. No pericardial effusion. Normal caliber thoracic aorta. No pulmonary artery enlargement or filling defect. Patchy airspace opacities with mosaic attenuation in both lungs. No consolidation. No pleural effusion or pneumothorax. No acute finding in the partially visualized upper abdomen. No acute fracture or suspicious bone lesion. IMPRESSION: 1. No pulmonary embolism. Mosaic attenuation in the lungs could reflect atypical infectious process such as viral pneumonitis versus pulmonary edema. Lab Data 10/30/24 16:51 10/30/24 16:51 Labs: Lab Results 10/30/24 Range/Units 16:51 WBC 6.4 (4.8-10.8) X10*3/uL RBC 4.22 (4.20-5.50) X10*6/uL Hgb 13.0 (12.0-16.0) g/dl Hct 38.6 (37.0-47.0) % MCV 91.5 (80.0-98.0) fL MCH 30.8 (27.0-33.0) pg MCHC 33.7 (31.0-35.0) g/dl RDW 13.5 (11.0-16.0) % Plt Count 158 L D (160-400) X10*3/uL MPV 10.2 (9.4-12.3) fL Immature Gran % (Auto) 0.3 (0.0-0.4) % Neut % (Auto) 41.4 L (45-73) % Lymph % (Auto) 45.9 H (20-40) % Kendall % (Auto) 8.7 (2-11) % Eos % (Auto) 3.1 (0-4) % Baso % (Auto) 0.6 (0-2) % Lymph # (Auto) 2.9 (1.2-4.9) X10*3/uL Kendall # (Auto) 0.6 (0.1-1.2) X10*3/uL Eos # (Auto) 0.2 (0.0-0.4) X10*3/uL Baso # (Auto) 0.0 (0.0-0.2) X10*3/uL Abs Immat Gran (auto) 0.02 (0.00-0.03) X10*3/uL Absolute Neuts (auto) 2.7 (2.0-8.3) x10*3/uL Absolute Nucleated RBC 0.000 (0.0-0.012) X10*3/uL Nucleated RBC % (auto) 0.0 (0.0-0.2) /100WBC PT 13.2 H (10.9-12.4) SEC INR 1.1 (0.9-1.1) Sodium 142 (135-145) mmol/L Potassium 4.4 (3.3-5.1) mmol/L Chloride 111 H (96-108) mmol/L Carbon Dioxide 26 (22-29) mmol/L Anion Gap 9 L (12-20) BUN 18 H (9-16) mg/dL Creatinine 0.77 (0.5-1.4) mg/dL Estim Creat Clear Calc 54.8 Estimated GFR > 60 Random Glucose 106 (60-115) mg/dL Calcium 9.6 (8.4-10.2) mg/dL Magnesium 1.8 (1.6-2.6) mg/dL Total Bilirubin 0.6 (0.0-1.0) mg/dL AST 35 H (5-31) U/L ALT 28 (0-31) U/L Alkaline Phosphatase 66 (39-117) U/L Total Protein 6.9 (6.5-8.0) g/dL Albumin 3.9 (3.5-5.0) g/dL Discharge Plan Discharge Clinical Impression: Strain of chest wall Patient Disposition: Home, Self-Care Instructions: Muscle Strain (ED), Chest Wall Pain (ED) Additional Instructions: The CT scan of your chest was normal, you have chest wall strain. See home care instructions. You can use [id number] Tylenol 1000 mg taken every 8 hours for your pain. Follow up with your primary care provider. Prescriptions: No Action cholecalciferol (vitamin D3) [Vitamin D3] 25 mcg (1,000 unit) Tablet 25 mcg PO DAILY meclizine 25 mg tablet 25 mg PO TID PRN (Reason: dizziness) Qty: 30 0RF Eliquis 5 mg tablet 5 mg PO BID Interventions: ED Discharge Assessment Last Done: 10/30/24 23:43 Discharge Date/Time: 10/30/24 23:44 Print Language: [place]
--- NOTE | 2024-10-30 23:42 | PC.NURSE ---
Addendum entered by Janay Fraire 10/30/24 23:51: RN called patient daughter back and informed them to please return to ED so we can verify the IV has been removed. patient daughter refused to bring patient back to ED. charger Kacey spoke with daughter and informed her if she would nto return then PD would be sent to her house to verify IV has been removed. Kacey RN to contact PD. Original Note: patient left ED before RN gave her paperwork. patient noted not to be in room. patient had IV in her arm. call to daughter who was with patient who informed RN she assisted patient in removing her IV.
[2024-10-30 23:43] VITALS: BP 126/81; PULSE 81; RESP 16; TEMP 36.7; O2SAT 92
== END 2024-10-30 23:44 | disposition home or self-care (01) ==
PROVIDERS: Emergency Provider Emergency Medicine; PCP Physician Assistant
DX: S29.011A Strain of muscle and tendon of front wall of thorax, initial encounter (principal); X58.XXXA Exposure to other specified factors, initial encounter; R07.81 Pleurodynia; Z86.718 Personal history of other venous thrombosis and embolism; Z79.01 Long term (current) use of anticoagulants; Y93.9 Activity, unspecified; Y92.9 Unspecified place or not applicable; Y99.9 Unspecified external cause status
CPT/HCPCS: 36415; 71101; 71275; 80053; 83735; 85025; 85610; 93005; 99284; Q9967

== ENCOUNTER → 2024-10-30 16:45 | Outpatient (BNV) | payer OTHER, SELFPAY | PROVIDERS: Emergency Provider Emergency Medicine; PCP Physician Assistant; Visit Provider Internal Medicine Cardiovascular Disease | DX: R07.9 Chest pain, unspecified (principal) | CPT/HCPCS: 93010 ==

== ENCOUNTER → 2024-10-30 18:03 | Outpatient (BNV) | payer OTHER, SELFPAY | PROVIDERS: PCP Physician Assistant; Visit Provider Radiology Diagnostic Radiology | DX: R07.89 Other chest pain (principal) | CPT/HCPCS: 71101; 71275 ==